=== PATIENT | female | born 1970 | race African-American/Black ===

== ENCOUNTER 2022-02-12 09:19 | Emergency (ER) | payer MEDICARE, OTHER ==
[~2022-02-12] VITALS: Ht 160 cm; Wt 108.0 kg
[2022-02-12] MEDS ORDERED: HYDROCODONE/ACETAMINOPHEN 5/325MG TABLET PO ONE (10:30)
[2022-02-12] MEDS ORDERED: IBUPROFEN 600MG TABLET PO ONE (10:30)
[2022-02-12] MEDS ORDERED: IBUP-2029 MT (10:32)
[2022-02-12] MEDS ORDERED: LIDO700A15 TP (10:32)
[2022-02-12] MEDS ORDERED: BACL-141 MT (10:32)
[2022-02-12] MEDS ORDERED: ACET-2708 MT (10:32)
[2022-02-12 11:01] VITALS: BP 127/75
== END 2022-02-12 11:02 | disposition home or self-care (01) ==
LOC: ER 09:19
DX: S43.402A Unspecified sprain of left shoulder joint, initial encounter (principal); I10 Essential (primary) hypertension; Z13.9 Encounter for screening, unspecified; Z91.040 Latex allergy status; X58.XXXA Exposure to other specified factors, initial encounter; Y93.89 Activity, other specified; Y92.89 Other specified places as the place of occurrence of the external cause; Y99.8 Other external cause status
CPT/HCPCS: 73030; 99283

== ENCOUNTER 2023-08-01 15:18 | Emergency (ER) | payer MEDICARE, OTHER ==
[~2023-08-01] VITALS: Ht 160 cm; Wt 103.4 kg
[~2023-08-01 15:18] MED LIST: ACET-2708 MT; BACL-141 MT; IBUP-2029 MT; LIDO700A15 TP
[2023-08-01 15:47] VITALS: BP 155/91; PULSE 102; RESP 16; TEMP 98.6; O2SAT 99
[2023-08-01] MEDS ORDERED: IBUP-2030 PO (18:49)
== END 2023-08-01 19:03 | disposition home or self-care (01) ==
LOC: ER 15:18
DX: M79.641 Pain in right hand (principal); E11.9 Type 2 diabetes mellitus without complications; I10 Essential (primary) hypertension; Z98.890 Other specified postprocedural states; Z91.040 Latex allergy status
CPT/HCPCS: 73130; 99283